=== PATIENT | male | born 1965 | race Hispanic/Latino ===

== ENCOUNTER 2024-09-06 22:28 | Emergency (ER) | payer SELFPAY ==
--- NOTE | 2024-09-06 23:30 | RAD REPORT ---
CT abdomen and pelvis without intravenous contrast TECHNIQUE: Axial images with helical technique were taken through the abdomen and pelvis without the intravenous administration of contrast. Oral contrast was notgiven. All CT scans at this facility use dose modulation, iterative reconstruction, and/or weight based dosing when appropriate t o reduce radiation dose to as low as reasonably achievable. HISTORY: FLANK PAIN COMPARISON: one FINDINGS: Lack of intravenous contrast limits the evaluation of the solid abdominal organs. Lung bases: Clear. Heart: Normal heart size. No pericardial effusion or pericardial thickening. ABDOMEN: Liver: Liver is normal in size and CT density. Gallbladder Unremarkable. No visible gallstones. Bile ducts: No intrahepatic or extrahepatic biliary tree dilatation. Spleen: Spleen is normal in size and CT density. Pancreas: Unremarkable. Kidneys: Bilateral punctate nonobstructing nephrolithiasis. 4 mm obstructing stone at the left uret erovesicular junction with mild to moderate left hydroureteronephrosis. No right-sided obstruction. Adrenals: Unremarkable. GI tract: The lack of oral contrast limits the CT evaluation of the gastrointestinal structures. Stomach: Limited gastric distention. Grossly unremarkable. Intestines: No CT evidence of intestinal obstruction or focal intestinal inflammatory abnormalities . Colonic diverticulosis. Appendix: No CT evidence or appendicitis. Lymph nodes: No abdominal or pelvic lymphadenopathy. Peritoneum: No ascites or pneumoperitoneum. Vasculature: Normal caliber abdominal aorta. Urinary bladder: Partially full, grossly unremarkable. Pelvis: No abnormal pelvic masses seen. Abdominal wall/Superficial soft tissues: No abdominal wall defects. No significant CTabnormalitie s of the superficial soft tissues. Bones: No acute osseous abnormalities. IMPRESSION: 1. 4 mm obstructing stone at the left ureterovesicular junction with mild to moderate left hydroure teronephrosis. 2. Bilateral punctate nonobstructing nephrolithiasis. 3. Colonic diverticulosis without CT evidence of diverticulitis. Electronically signed by: Jarad Sher MD 09/06/2024 11:25 PM CDT RP Workstation: [employer] [id number] Due to temporary technical issues with the PACS/Next Caller reporting system, reports are being portia d by the in-house radiologist without review as a courtesy to ensure prompt reporting the interpreting radiologist is fully responsible for the content of the report. Transcribed Date/Time: 09/06/2024 11:30 PM
[2024-09-07] MEDS ORDERED: ONDANSETRON 4 MG/2 ML VIAL ONE (00:19)
[2024-09-07] MEDS ORDERED: NA CHLORIDE 0.9% 1,000 ML ONE (00:20)
[2024-09-07] MEDS ORDERED: MORPHINE 4 MG/ML SYR ONE (00:20)
[2024-09-07] MEDS ORDERED: TAMSULOSIN 0.4 MG SR CAP ONE (00:20)
[2024-09-07] MEDS ORDERED: KETOROLAC 30 MG/ML INJ ONE (00:20)
[2024-09-07 00:28] LABS: Absolute Eosinophils 0.7 K/uL (0-0.5); Absolute Lymphocytes (CBC) 3.4 K/uL (0.7-4.9); Absolute Monocytes 1.2 K/uL (0.1-1.3); Absolute Neutrophil 8.5 K/uL (1.8-8.0); Basophils % 0.4 % (0-1.3); Eosinophils % 4.8 % (0-4.4); Hemoglobin 12.5 g/dL (13.6-17.9); Lymphocytes % 24.6 % (15.3-44.8); MCH 29.3 pg (27.0-35.0); MCHC 33.6 g/dL (32.0-36.0); MCV 87.1 fL (80-100); MPV 8.4 fL (7.6-11.3); Monocytes % 8.6 % (3.3-12.3); Neutrophils % 61.6 % (41.7-73.7); Nucleated Red Blood Cells % 0.1 % (0-0); Platelets 318 thou/uL (152-406); RBC Red Blood Cell Count 4.25 M/uL (4.33-5.43); Red Cell Distribution Width 13.3 % (12.1-15.2)
[2024-09-07 00:39] LABS: Albumin 3.8 g/dL (3.4-5.0); Albumin/Globulin Ratio 0.8 (1.1-1.8); Anion Gap 9.7 mEq/L (5.0-15.0); Bilirubin Total 0.5 mg/dL (0.2-1.0); Globulin 4.7 g/dL (2.3-3.5); Potassium 3.7 mEq/L (3.5-5.1); Protein, Total 8.5 g/dL (6.4-8.2)
[2024-09-07 02:46] LABS: Specific Gravity 1.012 (1.005-1.030); Sqamous Epithelial None Seen /HPF (None Seen); Urine Bacteria None Seen /HPF (<20); Urine Bilirubin NEGATIVE (Negative); Urine Blood 2+ (Negative); Urine Clarity Clear (Clear); Urine Color Colorless (Yellow); Urine Culture Reflex Order NOT NEEDED; Urine Glucose NEGATIVE (Negative); Urine Ketones NEGATIVE (Negative); Urine Microscopic Reflex YN ORDER UMIC; Urine Mucus Slight /HPF (None Seen); Urine Nitrite NEGATIVE (Negative); Urine Protein NEGATIVE (Negative); Urine Urobilinogen Normal (Normal); Urine WBC <5 /HPF (<5); Urine pH 6.5 (5.0-7.0)
--- NOTE | 2024-09-07 02:51 | ER ---
Nurse's Notes [facility] Name: Clarence Lopez Age: 59 yrs Sex: Male : 1965 Arrival Date: 09/06/2024 Time: 22:28 Bed 19 Private MD: Diagnosis: Calculus of ureter;Elevated creatinine Presentation: 09/06 23:16 Chief complaint: Patient states: c/o of left side abd/ pain. Started 2 days ago. Pain vc1 comes and goes. Coronavirus screen: Vaccine status: Patient reports receiving the 2nd dose of the covid vaccine. Ebola Screen: Patient negative for fever greater than or equal to 101.5 degrees Fahrenheit, and additional compatible Ebola Virus Disease symptoms. Initial Sepsis Screen: Does the patient meet any 2 criteria? No. Patient's initial sepsis screen is negative. Risk Assessment: Do you want to hurt yourself or someone else? Patient reports no desire to harm self or others. Onset of symptoms was 2023. 23:16 Method Of Arrival: Wheelchair vc1 23:16 Acuity: VASQUEZ 3 vc1 09/07 01:14 Initial Sepsis Screen: Does the patient meet any 2 criteria? No. Patient's initial al5 sepsis screen is negative. Does the patient have a suspected source of infection? No. Patient's initial sepsis screen is negative. Historical: - Allergies: 01:15 No Known Allergies; al5 - PMHx: 01:15 None; al5 - PSHx: 01:15 None; al5 - Immunization history:: Adult Immunizations up to date. - Infectious Disease History:: Denies. - Social history:: Smoking status: Patient denies any tobacco usage or history of. Screenin:00 [facility] ED Fall Risk Assessment (Adult) History of falling in the last 3 months, al5 including since admission No falls in past 3 months (0 pts) Confusion or Disorientation No (0 pts) Intoxicated or Sedated No (0 pts) Impaired Gait No (0 pts) Mobility Assist Device Used No (0 pt) Altered Elimination No (0 pt) Score/Fall Risk Level 0 - 2 = Low Risk Oriented to surroundings, Maintained a safe environment, Hourly rounding (assess needs \T\ fall precautionary measures) done. Abuse screen: Denies threats or abuse. Denies injuries from another. Nutritional screening: No deficits noted. Tuberculosis screening: No symptoms or risk factors identified. Assessment: 00:00 Reassessment:. General: Appears in no apparent distress. Behavior is calm, cooperative. al5 Pain: Complains of pain in anterior aspect of left lateral abdomen Pain currently is 10 out of 10 on a pain scale. Neuro: Level of Consciousness is awake, alert, obeys commands, Oriented to person, place, time, situation. Cardiovascular: Capillary refill < 3 seconds Patient's skin is warm and dry. Respiratory: Airway is patent Respiratory effort is even, unlabored, Respiratory pattern is regular, symmetrical. GI: No signs and/or symptoms were reported involving the gastrointestinal system. : Reports L side flank pain. EENT: No signs and/or symptoms were reported regarding the EENT system. Derm: Skin is intact, Skin is pink, warm \T\ dry. normal. Musculoskeletal: No signs and/or symptoms reported regarding the musculoskeletal system. 01:13 Reassessment: Patient appears in no apparent distress at this time. No changes from al5 previously documented assessment. Patient and/or family updated on plan of care and expected duration. Pain level reassessed. Patient is alert, oriented x 3, equal unlabored respirations, skin warm/dry/pink. 02:12 Reassessment: Patient appears in no apparent distress at this time. Patient and/or kj2 family updated on plan of care and expected duration. Pain level reassessed. Patient is alert, oriented x 3, equal unlabored respirations, skin warm/dry/pink. 03:15 Reassessment: Patient appears in no apparent distress at this time. Patient and/or kj2 family updated on plan of care and expected duration. Pain level reassessed. Patient is alert, oriented x 3, equal unlabored respirations, skin warm/dry/pink. Vital Signs: 09/06 23:16 BP 157 / 92; Pulse 80; Resp 20; Temp 98.8; Pulse Ox 96% ; Weight 97.52 kg; Height 5 ft. vc1 7 in. ; Pain 09/08; 09/07 00:24 BP 179 / 96; Pulse 68; Resp 21; Pulse Ox 97% on R/A; al5 01:00 BP 175 / 89; Pulse 62; Resp 18; Pulse Ox 97% on R/A; al5 02:15 BP 162 / 82; Pulse 60; Resp 20; Temp 98; Pulse Ox 100% on R/A; kj2 03:24 BP 160 / 84; Pulse 60; Resp 18; Temp 98; Pulse Ox 100% on R/A; kj2 09/06 23:16 Body Mass Index 33.67 (97.52 kg, 170.18 cm) vc1 09/06 23:16 Pain Scale: Adult vc1 ED Course: 09/06 22:31 Patient arrived in ED. gm2 22:33 Valencia Mendez FNP-C is PHCP. kb 22:33 Francis Bro MD is Attending Physician. kb 23:09 CT Stone Protocol In Process Unspecified. EDMS 23:20 Triage completed. vc1 09/07 00:00 No provider procedures requiring assistance completed. al5 00:00 Patient has correct armband on for positive identification. Bed in low position. Call al5 light in reach. Side rails up X2. Provided Education on: plan of care. 00:04 Raven Najera, JUSTIN is Primary Nurse. al5 00:14 Inserted saline lock: 22 gauge in right antecubital area, using aseptic technique. oe Blood collected. Flushed with 10 mL NS. 00:15 CBC with Diff Sent. oe 00:15 CMP Sent. oe 00:15 Lipase Sent. oe 01:15 Arm band placed on right wrist. Patient placed in the treatment room, on a stretcher. al5 02:50 Abdi Samuel MD is Referral Physician. rt 03:26 IV discontinued, intact, bleeding controlled, No redness/swelling at site. Pressure kj2 dressing applied. Administered Medications: 00:36 Drug: Ondansetron IVP 4 mg IVP once; over 2 minutes Route: IVP; Site: right antecubital;al5 00:36 Drug: morphine IVP or IV 4 mg IVP once over 4 mins Route: IVP; Infused Over: 4 mins; al5 Site: right antecubital; 00:36 Drug: NS 0.9% IV 1000 ml IV at 1000 ml once Route: IV; Rate: 1000 ml; Site: right al5 antecubital; 00:36 Drug: Flomax PO 0.4 mg PO once Route: PO; al5 00:36 Drug: Ketorolac IVP 15 mg IVP once Route: IVP; Site: right antecubital; al5 Medication: 00:00 VIS not applicable for this client. al5 Outcome: 02:51 Discharge ordered by . rt 03:23 Discharged to home ambulatory, with family, kj2 03:23 Condition: stable 03:23 Discharge instructions given to patient, family, Instructed on discharge instructions, follow up and referral plans. medication usage, Demonstrated understanding of instructions, follow-up care, medications, Prescriptions given X 2, 03:26 Patient left the ED. kj2 Signatures: Dispatcher [employer] EDMS Valencia Mendez FNP-C JOB SITE SUPERVISOR-Fausto Medellin Vanessa, RN RN vc1 Francis Bro MD MD rt Arleen Lim gm2 Raven Najera RN RN al5 Mariaa Mon, JUSTIN RN kj2 Corrections: (The following items were deleted from the chart) 01:15 01:15 PMHx: None; al5 al5
--- NOTE | 2024-09-07 02:51 | EDPHYS ---
Physician Documentation [facility] Name: Clarence Lopez Age: 59 yrs Sex: Male : 1965 Arrival Date: 09/06/2024 Time: 22:28 Bed 19 Private MD: ED Physician Francis Bro HPI: 09/06 22:36 This 59 yrs old Male presents to ER via Unassigned with complaints of Flank kb Pain. 22:36 Pt is a 59 year old male who presents for left lateral abd pain that started 2 days kb ago. denies n/v/d, fever, urinary symptoms. No aggravating or alleviating factors. . Historical: - Allergies: 09/07 01:15 No Known Allergies; al5 - PMHx: 01:15 None; al5 - PSHx: 01:15 None; al5 - Immunization history:: Adult Immunizations up to date. - Infectious Disease History:: Denies. - Social history:: Smoking status: Patient denies any tobacco usage or history of. ROS: 09/06 22:36 Constitutional: As per HPI kb Exam: 22:36 Constitutional: This is a well developed, well nourished patient who is awake, alert, kb and in no acute distress. Head/Face: Normocephalic, atraumatic. ENT: Moist Mucous membranes Cardiovascular: Regular rate Respiratory: Respirations even and unlabored. No increased work of breathing. Talking in full sentences Skin: Warm, dry with normal turgor. Normal color. MS/ Extremity: Pulses equal, no cyanosis. Neurovascular intact. Full, normal range of motion. Neuro: Awake and alert, GCS 15, oriented to person, place, time, and situation. Moves all extremities. Normal gait. 22:36 Abdomen/GI: Inspection: abdomen appears normal, Bowel sounds: normal, Palpation: soft, in all quadrants, moderate abdominal tenderness, in the anterior aspect of left lateral abdomen, Vital Signs: 23:16 BP 157 / 92; Pulse 80; Resp 20; Temp 98.8; Pulse Ox 96% ; Weight 97.52 kg; Height 5 ft. vc1 7 in. ; Pain 10/10; 09/07 00:24 BP 179 / 96; Pulse 68; Resp 21; Pulse Ox 97% on R/A; al5 01:00 BP 175 / 89; Pulse 62; Resp 18; Pulse Ox 97% on R/A; al5 02:15 BP 162 / 82; Pulse 60; Resp 20; Temp 98; Pulse Ox 100% on R/A; kj2 03:24 BP 160 / 84; Pulse 60; Resp 18; Temp 98; Pulse Ox 100% on R/A; kj2 09/06 23:16 Body Mass Index 33.67 (97.52 kg, 170.18 cm) vc1 09/06 23:16 Pain Scale: Adult vc1 MDM: 09/06 22:33 Patient medically screened. kb 22:36 Data reviewed: vital signs, nurses notes. kb 09/07 01:03 Transition of care: After a detail discussion of the patient's case, care is kb transferred to Francis Bro MD. 09/06 22:36 Order name: CBC with Diff; Complete Time: 00:33 kb 09/06 22:36 Order name: CMP; Complete Time: 00:39 kb 09/06 22:36 Order name: Lipase; Complete Time: 00:39 kb 09/06 22:36 Order name: Urinalysis w/ reflexes; Complete Time: 02:48 kb 09/06 22:36 Order name: CT Stone Protocol kb 09/06 22:36 Order name: IV Saline Lock; Complete Time: 00:15 kb 09/06 22:36 Order name: Labs collected and sent; Complete Time: 00:15 kb Administered Medications: 00:36 Drug: Ondansetron IVP 4 mg IVP once; over 2 minutes Route: IVP; Site: right antecubital;al5 00:36 Drug: morphine IVP or IV 4 mg IVP once over 4 mins Route: IVP; Infused Over: 4 mins; al5 Site: right antecubital; 00:36 Drug: NS 0.9% IV 1000 ml IV at 1000 ml once Route: IV; Rate: 1000 ml; Site: right al5 antecubital; 00:36 Drug: Flomax PO 0.4 mg PO once Route: PO; al5 00:36 Drug: Ketorolac IVP 15 mg IVP once Route: IVP; Site: right antecubital; al5 Disposition: 03:39 Co-signature as Attending Physician, Francis Bro MD I reviewed the patient's care rt provided by the Advanced Practice Provider and agree with the diagnosis and treatment plan. 03:45 I reviewed the patient's care provided by Advanced Practice Provider \T\ agree w/ the rt diagnosis \T\ care plan. I personally saw the pt \T\ performed a substantive portion of the visit, incldng all aspects of the (History/Exam/Medical Decision Making). Symptoms resolved with treatment in the ED, urinalysis unremarkable. Patient informed of findings of elevated creatinine, not believe that he requires admission at this time, patient stable for outpatient care, return precautions discussed.. Disposition Summary: 09/07/24 02:51 Discharge Ordered Notes: Location: Home rt Problem: new rt Symptoms: have improved rt Condition: Stable rt Diagnosis - Calculus of ureter rt - Elevated creatinine rt Followup: rt - With: Abdi Samuel MD - When: 5 - 6 days - Reason: Discharge Instructions: - Discharge Summary Sheet rt - Kidney Stones rt Forms: - Medication Reconciliation Form rt - Antibiotic Education rt - Prescription Opioid Use rt - Patient Portal Instructions rt - Leadership Thank You Letter rt Prescriptions: - Zofran 4 mg Oral tablet - take 1 tablet ORAL route every 6 hours As needed; 20 tablet; Refills: 0, rt Product Selection Permitted - Tramadol 50 mg Oral Tablet - take 1 tablet ORAL route every 8 hours as needed; 12 tablet; Refills: 0, rt Product Selection Permitted Signatures: Dispatcher [employer] EDMS Valencia Mendez, ENDOCRINOLOGY SPECIALIST-C ENDOCRINOLOGY SPECIALIST-Francis Husain MD MD rt Raven Najera RN RN al5 Corrections: (The following items were deleted from the chart) 09/06 22:36 22:36 CBC+H.LAB.BRZ ordered. EDMS EDMS 22:36 22:36 COMPREHENSIVE METABOLIC PANEL+C.LAB.BRZ ordered. EDMS EDMS 22:36 22:36 LIPASE+C.LAB.BRZ ordered. EDMS EDMS 22:36 22:36 Urinalysis+U.LAB.BRZ ordered. EDWV EDMS 09/07 01:15 01:15 PMHx: None; al5 al5
[2024-09-07 03:36] VITALS: TEMP 98; O2SAT 100
[2024-09-07 03:38] VITALS: BP 160/84
== END 2024-09-07 03:26 | disposition home or self-care (01) ==
LOC: ER 22:28
DX: N20.1 Calculus of ureter (principal); R79.89 Other specified abnormal findings of blood chemistry
CPT/HCPCS: 36415; 74176; 76377; 80053; 81001; 83690; 85025; J2405; J7030